=== PATIENT | female | born 1995 | race Caucasian/White ===

== ENCOUNTER → 2017-12-20 | Outpatient (CLI) | payer OTHER ==
--- NOTE | 2017-12-20 10:21 | RADIOLOGY IMAGING REPORT ---
FACILITY: [facility] PATIENT NAME: Jennifer Mcgrath : 1995 MR: [id number] V: [id number] EXAM DATE: ORDERING PHYSICIAN: ALAYNA GASPAR TECHNOLOGIST: Location: [facility] Patient: Jennifer Mcgrath : 1995 Visit/Account:[id number] Date of Sevice: 12/20/2017 MRI right knee without contrast Indication: Knee pain. Prior ACL reconstruction. Comparison: None. Technique: Multiplanar, multisequence MRI examination is performed of the right knee without contrast . Findings: Examination of the medial compartment demonstrates a complex tear involving the body and the posterio r horn of the medial meniscus. This is predominantly a vertical longitudinal tear involving the poste rior horn which extends to the junction with the meniscal body. No displaced meniscal fragment is see n. Chondrosis involves the posterior weightbearing surface of the medial tibial plateau. There are jerome ne contusions present involving the posterior rim of the medial tibial plateau as well as the adjacen t medial femoral condyle. No fracture line. Examination of the lateral compartment demonstrates inner margin fraying of the lateral meniscus at t he junction of the body and the posterior horn. The articular cartilage surfaces are normal. There is a bone contusion without fracture line involving the posterior rim of the lateral tibial plateau. Examination of the patellofemoral compartment demonstrates far medial patellar chondrosis with deep l inear fissuring and subchondral edema. Trochlear surfaces are maintained. There has been previous ACL reconstruction. No intact graft fibers are identified. Graft is felt to b e completely ruptured within the joint space. PCL is intact with mild laxity. Mild thickening of the proximal third of the MCL may reflect an old injury. No acute edema or tear. The lateral collateral ligament complex is maintained. The extensor mechanism is intact. A small to intermediate joint effusion is seen. IMPRESSION: 1. Findings consistent with complete rupture of a right knee anterior cruciate ligament reconstructio n graft. No intact fibers are seen. There are associated bone contusions involving the tibial plateau s posteriorly as well as the peripheral margin of the medial femoral condyle. 2. Complex tearing of the body and posterior horn of the medial meniscus. 3. Inner margin fraying of the lateral meniscus at the junction of the body and the posterior horn. 4. Intermediate joint effusion. Report Dictated By: Shmuel Murillo at 12/20/2017 9:57 AM Report E-Signed By: Shmuel Murillo at 12/20/2017 10:18 AM WSN:[id number]
== END ==
LOC: MRI 08:10
PROVIDERS: ATTEND Family Medicine
DX: S83.511A Sprain of anterior cruciate ligament of right knee, initial encounter (principal); S83.200A Bucket-handle tear of unspecified meniscus, current injury, right knee, initial encounter; M25.461 Effusion, right knee

== ENCOUNTER → 2018-08-27 | Outpatient (CLI) | payer OTHER ==
--- NOTE | 2018-08-27 13:16 | RADIOLOGY IMAGING REPORT ---
FACILITY: [facility] PATIENT NAME: Jennifer Mcgrath : 1995 MR: [id number] V: [id number] EXAM DATE: ORDERING PHYSICIAN: MITZY OZUNA TECHNOLOGIST: [place] [facility] [place]: [place] Mcgrath : 1995 Visit/Account:[id number] Date of Sevice: 08/27/2018 CT KNEE W/O RT HISTORY: Knee pain. Bone graft. ADDITIONAL HISTORY: None. TECHNIQUE: CT images were obtained through the right knee without intravenous contrast. 2D coronal a nd sagittal images obtained from the initial data. One of the following dose optimization techniques was utilized in the performance of this exam: automated exposure control; adjustment of the mA and/or kv according to patient size; or use of iterative reconstruction technique. Specific details can be referenced in the facility's radiology CT exam operational policy. CONTRAST: None COMPARISON: MRI 12/20/2017 FINDINGS: Knee: No acute fracture or dislocation. No significant degenerative changes. No evidence of AVN. No j oint effusion No loose body. Prior ACL reconstruction with femoral and tibial tunnels. Bone graft m aterial within the femoral tunnel appears well incorporated. There is bone graft material within the tibial tunnel appears mostly incorporated with small amount of extrusion at the tibial articular daniel face and anterior tibial cortex Soft tissues: Normal Other findings: None significant IMPRESSION: 1. Prior ACL reconstruction with femoral and tibial tunnels. Bone graft material within the femoral tunnel appears well corporative. Bone graft material within the tibial tunnel appears mostly incorp orated with a small amount of extrusion at the tibial articular surface and anterior tibial cortex Report Dictated By: Noman Thornton MD at 08/27/2018 12:54 PM Report E-Signed By: Noman Thornton MD at 08/27/2018 1:08 PM WSN:[id number]
== END ==
LOC: CT 01:11
PROVIDERS: ATTEND Orthopaedic Surgery
DX: T84.428A Displacement of other internal orthopedic devices, implants and grafts, initial encounter (principal)